=== PATIENT | male | born 1980 | race Caucasian/White ===

== ENCOUNTER 2016-12-02 17:57 | Emergency (ER) | payer BC ==
[2016-12-02] MEDS ORDERED: Sodium Chloride 0.9% 10 ML Syringe FLUSH PRN (18:28)
[2016-12-02] MEDS ORDERED: diphenhydrAMINE 50 MG/ML SDV IVPUSH ONE (18:29)
[2016-12-02] MEDS ORDERED: Prochlorperazine 10 MG/2 ML SDV IVPUSH ONE (18:29)
[2016-12-02] MEDS ORDERED: Ketorolac 30 MG/ML SDV IVPUSH ONE (18:29)
[2016-12-02] MEDS ORDERED: Sodium Chloride 0.9% 1,000 ML ONE (18:35)
--- NOTE | 2016-12-02 19:25 | EDM.PDOC ---
ED HPI GENERAL MEDICAL PROBLEM - General Chief Complaint: Neurological Problem Stated Complaint: HEADACHES Time Seen by Provider: 12/02/16 18:10 Source of Information: Reports: Patient History Limitations: Reports: No Limitations - History of Present Illness INITIAL COMMENTS - FREE TEXT/NARRATIVE: The patient presents with a headache for a few days. This started on Friday and it is still present. It is on the left side. He has no nausea, vomiting, numbness or weakness. He has dealt with these headaches for months. He has had MRIs of his head and cervical spine. He has been to neurology and they diagnosed him with chronic migraines. He is on amytroptoline and other meds and they are not helping. Onset: Gradual Duration: Day(s): (3) Location: Reports: Head Quality: Reports: Ache, Sharp Severity: Severe Improves with: Reports: None Worsens with: Reports: None Associated Symptoms: Reports: No Other Symptoms Headache Pain Score (Numeric/FACES): 5 - Related Data Allergies Allergy/AdvReac Type Severity Reaction Status Date / Time octopus Allergy Hives Verified 12/02/16 18:08 Home Meds: Home Meds Amitriptyline [Elavil] 20 mg PO BEDTIME 12/02/16 [History] Headache Medicine? 12/02/16 [History] Hydrocodone/Acetaminophen [Hydrocodon-Acetaminophen 5-325] 1 - 2 each PO Q6HR PRN #30 tablet 12/02/16 [Rx] Past Medical History Neurological History: Reports: Migraines - Past Surgical History Other HEENT Surgeries/Procedures: [place] tooth extraction Other GI Surgeries/Procedures: Bilateral inguinal hernia repair Social & Family History - Tobacco Use Smoking Status *Q: Never Smoker Years of Tobacco use: 6 Packs/Tins Daily: 1 - Recreational Drug Use Recreational Drug Use: No ED ROS GENERAL - Review of Systems Review Of Systems: See Below Constitutional: Reports: No Symptoms HEENT: Reports: No Symptoms Respiratory: Reports: No Symptoms Cardiovascular: Reports: No Symptoms Endocrine: Reports: No Symptoms GI/Abdominal: Reports: No Symptoms : Reports: No Symptoms Musculoskeletal: Reports: No Symptoms Skin: Reports: No Symptoms Neurological: Reports: Headache ED EXAM, NEURO - Physical Exam Exam: See Below Exam Limited By: No Limitations General Appearance: Alert, No Apparent Distress Ears: Normal External Exam Nose: Normal Inspection Throat/Mouth: Normal Inspection Head Exam: Atraumatic, Normocephalic Neck: Normal Inspection Respiratory/Chest: No Respiratory Distress, Lungs Clear, Normal Breath Sounds Cardiovascular: Regular Rate, Rhythm, No Edema, No Murmur GI/Abdominal: Soft, Non-Tender, No Organomegaly Neurological: Alert, No Motor/Sensory Deficits, Oriented x 3 Course - Vital Signs Last Recorded V/S: Last Vital Signs Temp 97.6 F 12/02/16 18:08 Pulse 102 H 12/02/16 18:08 Resp 15 12/02/16 18:08 BP 132/107 H 12/02/16 18:08 Pulse Ox 98 12/02/16 18:08 - Orders/Labs/Meds Orders: Active Orders 24 hr Category Date Time Status Peripheral IV Care [RC] . DIRECTED Care 12/02/16 18:28 Active Sodium Chloride 0.9% [Saline Flush] Med 12/02/16 18:28 Active 10 ml FLUSH ASDIRECTED PRN Peripheral IV Insertion Adult [OM.PC] Routine Oth 12/02/16 18:28 Ordered Medication Orders Sodium Chloride (Saline Flush) 10 ml FLUSH ASDIRECTED PRN PRN Reason: Keep Vein Open Last Admin: 12/02/16 19:01 Dose: 10 ml Meds: Medications Generic Name Dose Route Start Last Admin Trade Name Freq PRN Reason Stop Dose Admin Sodium Chloride 10 ml 12/02/16 18:28 12/02/16 19:01 Saline Flush FLUSH 10 ml ASDIRECTED PRN Administration Keep Vein Open Discontinued Medications Generic Name Dose Route Start Last Admin Trade Name Freq PRN Reason Stop Dose Admin Diphenhydramine HCl 50 mg 12/02/16 18:29 12/02/16 18:58 Benadryl IVPUSH 12/02/16 18:30 50 mg ONETIME ONE Administration Sodium Chloride Confirm 12/02/16 18:35 Normal Saline Administered 12/02/16 18:36 Dose 1,000 mls @ as directed .ROUTE .STK-MED ONE Ketorolac Tromethamine 30 mg 12/02/16 18:29 12/02/16 18:56 Toradol IVPUSH 12/02/16 18:30 30 mg ONETIME ONE Administration Prochlorperazine Edisylate 10 mg 12/02/16 18:29 12/02/16 18:54 Compazine IVPUSH 12/02/16 18:30 10 mg ONETIME ONE Administration - Re-Assessments/Exams Free Text/Narrative Re-Assessment/Exam: 12/02/16 19:25 I ordered an IV saline lock, compazine 10mg IV, toradol 30mg IV and benadryl 50mg IV. 12/02/16 19:31 His headache is better but not gone. I will discharge him on some hydrocodone. Departure - Departure Time of Disposition: 19:35 Disposition: Home, Self-Care 01 Condition: Good Clinical Impression: Migraine headache Qualifiers: Migraine type: other Status migrainosus presence: without status migrainosus Intractability: not intractable Qualified Code(s): G43.809 - Other migraine, not intractable, without status migrainosus - Discharge Information Prescriptions: Hydrocodone/Acetaminophen [Hydrocodon-Acetaminophen 5-325] 1 - 2 each PO Q6HR PRN #30 tablet PRN Reason: Pain Referrals: Christina Ramirez PA-C [Primary Care Provider] - 1 Week Forms: ED Department Discharge Additional Instructions: Take your medication as prescribed. Follow up with Christina Ramirez or your neurologist. Please return if you are worse. - My Orders Last 24 Hours: My Active Orders 12/02/16 18:28 Peripheral IV Care [RC] . DIRECTED Sodium Chloride 0.9% [Saline Flush] 10 ml FLUSH ASDIRECTED PRN Peripheral IV Insertion Adult [OM.PC] Routine - Assessment/Plan Last 24 Hours: My Active Orders 12/02/16 18:28 Peripheral IV Care [RC] . DIRECTED Sodium Chloride 0.9% [Saline Flush] 10 ml FLUSH ASDIRECTED PRN Peripheral IV Insertion Adult [OM.PC] Routine
[2016-12-02 19:59] VITALS: BP 130/84
== END 2016-12-02 19:50 | disposition home or self-care (01) ==
LOC: JD.ED 17:57
DX: G43.809 Other migraine, not intractable, without status migrainosus (principal); Z91.09 Other allergy status, other than to drugs and biological substances
CPT/HCPCS: 96374; 96375; 99284; J0780; J1200; J1885; J7050

== ENCOUNTER 2017-03-26 12:38 | Emergency (ER) | payer BC ==
[2017-03-26 13:09] VITALS: BP 142/81
[2017-03-26] MEDS ORDERED: Sodium Chloride 0.9% 10 ML Syringe FLUSH PRN (13:46)
[2017-03-26] MEDS ORDERED: Prochlorperazine 10 MG/2 ML SDV IVPUSH ONE (13:47)
[2017-03-26] MEDS ORDERED: diphenhydrAMINE 50 MG/ML SDV IVPUSH ONE (13:47)
[2017-03-26] MEDS ORDERED: Ketorolac 30 MG/ML SDV IVPUSH ONE (13:47)
[2017-03-26] MEDS ORDERED: Sodium Chloride 0.9% 1,000 ML IV SCH (14:00)
--- NOTE | 2017-03-26 14:56 | EDM.PDOC ---
ED HPI GENERAL MEDICAL PROBLEM - General Chief Complaint: Neurological Problem Stated Complaint: HEADACHES Time Seen by Provider: 03/26/17 12:39 Source of Information: Reports: Patient History Limitations: Reports: No Limitations - History of Present Illness INITIAL COMMENTS - FREE TEXT/NARRATIVE: The patient presents with a headache. He has a generalized headache and neck pain at times. He has been evaluated by a couple neurologists and is being managed by his primary care doctor. Nothing has been helping recently he is on some gabapentin and he was told that will take a month to work. He denies any numbness or weakness. He has no vision changes. He has no fever or chills. He has no nausea or vomiting. Onset: Gradual Duration: Week(s): Location: Reports: Head, Neck Quality: Reports: Sharp Severity: Moderate Improves with: Reports: None Worsens with: Reports: None Context: Reports: Activity (He does a lot of looking up with his job) Associated Symptoms: Reports: Headaches Treatments [employer] WORK[employer]: Reports: Other (see below) Other Treatments [employer] WORKER: ibuprofen at 0815/ tylenol 500 mg at noon Headache Pain Score (Numeric/FACES): 8 - Related Data Allergies Allergy/AdvReac Type Severity Reaction Status Date / Time octopus Allergy Hives Verified 03/26/17 13:04 Home Meds: Home Meds Gabapentin [Neurontin] 300 mg PO TID 03/26/17 [History] Hydrocodone/Acetaminophen [Hydrocodon-Acetaminophn 10-325] 1 each PO Q6HR PRN # 30 tablet 03/26/17 [Rx] Past Medical History Neurological History: Reports: Migraines - Past Surgical History Other HEENT Surgeries/Procedures: [place] tooth extraction Other GI Surgeries/Procedures: Bilateral inguinal hernia repair Social & Family History - Tobacco Use Smoking Status *Q: Never Smoker Years of Tobacco use: 6 Packs/Tins Daily: 1 - Recreational Drug Use Recreational Drug Use: No ED ROS GENERAL - Review of Systems Review Of Systems: See Below Constitutional: Reports: No Symptoms HEENT: Reports: No Symptoms Respiratory: Reports: No Symptoms Cardiovascular: Reports: No Symptoms Endocrine: Reports: No Symptoms GI/Abdominal: Reports: No Symptoms : Reports: No Symptoms Musculoskeletal: Reports: Neck Pain Neurological: Reports: Headache ED EXAM, NEURO - Physical Exam Exam: See Below Exam Limited By: No Limitations General Appearance: Alert, No Apparent Distress Ears: Normal External Exam Nose: Normal Inspection Head Exam: Atraumatic, Normocephalic Neck: Normal Inspection Respiratory/Chest: No Respiratory Distress, Lungs Clear, Normal Breath Sounds Cardiovascular: Regular Rate, Rhythm, No Edema, No Murmur GI/Abdominal: Soft, Non-Tender, No Organomegaly, No Mass Neurological: Alert, No Motor/Sensory Deficits, Oriented x 3 Course - Vital Signs Last Recorded V/S: Last Vital Signs Temp 98.2 F 03/26/17 13:05 Pulse 83 03/26/17 13:05 Resp 16 03/26/17 13:05 BP 142/81 H 03/26/17 13:05 Pulse Ox 95 03/26/17 13:05 - Orders/Labs/Meds Orders: Active Orders 24 hr Category Date Time Status Peripheral IV Care [RC] . DIRECTED Care 03/26/17 13:47 Active Sodium Chloride 0.9% [Normal Saline] 1,000 ml Med 03/26/17 14:00 Active IV ASDIRECTED Sodium Chloride 0.9% [Saline Flush] Med 03/26/17 13:46 Active 10 ml FLUSH ASDIRECTED PRN Peripheral IV Insertion Adult [OM.PC] Routine Oth 03/26/17 13:46 Ordered Medication Orders Sodium Chloride (Normal Saline) 1,000 mls @ 150 mls/hr IV ASDIRECTED IRENE Last Admin: 03/26/17 14:14 Dose: 150 mls/hr Sodium Chloride (Saline Flush) 10 ml FLUSH ASDIRECTED PRN PRN Reason: Keep Vein Open Last Admin: 03/26/17 14:24 Dose: 10 ml Meds: Medications Generic Name Dose Route Start Last Admin Trade Name Freq PRN Reason Stop Dose Admin Sodium Chloride 1,000 mls @ 150 mls/hr 03/26/17 14:00 03/26/17 14:14 Normal Saline IV 150 mls/hr ASDIRECTED IRENE Administration Sodium Chloride 10 ml 03/26/17 13:46 03/26/17 14:24 Saline Flush FLUSH 10 ml ASDIRECTED PRN Administration Keep Vein Open Discontinued Medications Generic Name Dose Route Start Last Admin Trade Name Freq PRN Reason Stop Dose Admin Diphenhydramine HCl 50 mg 03/26/17 13:47 03/26/17 14:14 Benadryl IVPUSH 03/26/17 13:48 50 mg ONETIME ONE Administration Ketorolac Tromethamine 30 mg 03/26/17 13:47 03/26/17 14:19 Toradol IVPUSH 03/26/17 13:48 30 mg ONETIME ONE Administration Prochlorperazine Edisylate 10 mg 03/26/17 13:47 03/26/17 14:22 Compazine IVPUSH 03/26/17 13:48 10 mg ONETIME ONE Administration - Re-Assessments/Exams Free Text/Narrative Re-Assessment/Exam: 03/26/17 14:55 I ordered an IV NS 1L bolus, compazine 10mg IV, toradol 30mg IV, and benadryl 50mg IV. He feels better. I will discharge him home. Departure - Departure Time of Disposition: 14:55 Disposition: Home, Self-Care 01 Condition: Good Clinical Impression: Migraine headache Qualifiers: Migraine type: other Status migrainosus presence: without status migrainosus Intractability: not intractable Qualified Code(s): G43.809 - Other migraine, not intractable, without status migrainosus - Discharge Information Prescriptions: Hydrocodone/Acetaminophen [Hydrocodon-Acetaminophn 10-325] 1 each PO Q6HR PRN # 30 tablet PRN Reason: Pain Referrals: Ryan Arguello MD [Primary Care Provider] - 1 Week Additional Instructions: Take the hydrocodone as needed for pain. Take your other medication as needed. Please return if you are worse. - My Orders Last 24 Hours: My Active Orders 03/26/17 13:46 Sodium Chloride 0.9% [Saline Flush] 10 ml FLUSH ASDIRECTED PRN Peripheral IV Insertion Adult [OM.PC] Routine 03/26/17 13:47 Peripheral IV Care [RC] . DIRECTED 03/26/17 14:00 Sodium Chloride 0.9% [Normal Saline] 1,000 ml IV ASDIRECTED - Assessment/Plan Last 24 Hours: My Active Orders 03/26/17 13:46 Sodium Chloride 0.9% [Saline Flush] 10 ml FLUSH ASDIRECTED PRN Peripheral IV Insertion Adult [OM.PC] Routine 03/26/17 13:47 Peripheral IV Care [RC] . DIRECTED 03/26/17 14:00 Sodium Chloride 0.9% [Normal Saline] 1,000 ml IV ASDIRECTED
== END 2017-03-26 15:21 | disposition home or self-care (01) ==
LOC: JD.ED 12:38
DX: G43.809 Other migraine, not intractable, without status migrainosus (principal); Z91.018 Allergy to other foods
CPT/HCPCS: 96361; 96374; 96375; 99283; J0780; J1200; J1885; J7040; J7050; 99284

== ENCOUNTER 2017-04-19 10:42 | Emergency (ER) | payer BC ==
[2017-04-19 10:51] VITALS: BP 137/88
--- NOTE | 2017-04-19 10:52 | EDM.PDOC ---
ED HPI GENERAL MEDICAL PROBLEM - General Chief Complaint: ENT Problem Stated Complaint: SORE THROAT Time Seen by Provider: 04/19/17 10:52 Source of Information: Reports: Patient History Limitations: Reports: No Limitations - History of Present Illness INITIAL COMMENTS - FREE TEXT/NARRATIVE: 36-year-old male presents to the ED with painful sore throat headache and paroxysmal dry cough that started suddenly yesterday last evening. Patient has a son that was diagnosed with influenza A 4 days ago. He has not had a flu shot. Patient wasn't sure there is a fever. He did have diaphoresis and chills last night. States his throat is very sore and he thought it was closing in a bit was somewhat fearful that he was going to choke last night. Of note he still has tonsils. Did take Tylenol for fever and sore throat relief. Onset: Sudden Onset Date: 04/18/17 Onset Time: 19:00 Duration: Hour(s): Location: Reports: Neck, Chest (Mostly his throat), Generalized ( oxygen small nonproductive cough generalized myalgia headache ) Quality: Reports: Ache Severity: Moderate Improves with: Reports: None Worsens with: Reports: None Context: Denies: Activity, Exercise, Lifting, Sick Contact, Trauma, Other Associated Symptoms: Reports: Cough, Diaphoresis, Fever/Chills (Last night), Headaches, Loss of Appetite ( chills but not a defined fever.), Malaise. Denies : No Other Symptoms, Confusion, Chest Pain (Nonproductive), cough w sputum, Nausea/Vomiting, Rash, Seizure, Shortness of Breath, Syncope, Weakness Treatments [employer]IPMENT [employer]CH: Reports: Acetaminophen Neck Pain Score (Numeric/FACES): 6 - Related Data Allergies Allergy/AdvReac Type Severity Reaction Status Date / Time octopus Allergy Hives Verified 03/26/17 13:04 Home Meds: Home Meds Hydrocodone/Chlorphen P-Stirex [Tussionex Pennkinetic Susp] 5 ml PO Q12H PRN # 60 ml 04/19/17 [Rx] Naltrexone 1.5 mg PO BEDTIME 04/19/17 [History] Oseltamivir [Tamiflu] 75 mg PO BID #10 cap 04/19/17 [Rx] Past Medical History Neurological History: Reports: Migraines - Past Surgical History Other HEENT Surgeries/Procedures: [place] tooth extraction Other GI Surgeries/Procedures: Bilateral inguinal hernia repair Social & Family History - Tobacco Use Smoking Status *Q: Never Smoker Years of Tobacco use: 6 Packs/Tins Daily: 1 - Recreational Drug Use Recreational Drug Use: No - Living Situation & Occupation Living situation: Reports: Occupation: Employed ED ROS ENT - Review of Systems Review Of Systems: See Below Constitutional: Reports: Chills, Malaise, Weakness, Fatigue, Diaphoresis (Last night.), Decreased Appetite. Denies: Weight Loss HEENT: Reports: Throat Pain, Throat Swelling Respiratory: Reports: Cough. Denies: Sputum Cardiovascular: Reports: No Symptoms Endocrine: Reports: No Symptoms GI/Abdominal: Reports: No Symptoms : Reports: No Symptoms Musculoskeletal: Reports: No Symptoms Skin: Reports: No Symptoms Neurological: Reports: No Symptoms Psychiatric: Reports: No Symptoms Hematologic/Lymphatic: Reports: No Symptoms ED EXAM, ENT - Physical Exam Exam: See Below Exam Limited By: No Limitations General Appearance: Alert, WD/WN, No Apparent Distress, Other (Mildly warm to palpation.) Eye Exam: Bilateral Eye: Normal Inspection, PERRL (Some pain on lateral gaze bilaterally.) Ears: Normal TMs Mouth/Throat: Normal Inspection, Normal Gums, Normal Lips, Normal Oropharynx, Other (Diffuse mild erythema but no exudate or tonsillar swelling.) Head: Atraumatic, Normocephalic Neck: Normal Inspection, Supple, Non-Tender, Full Range of Motion. No: Lymphadenopathy (L), Lymphadenopathy (R) Respiratory/Chest: No Respiratory Distress, Lungs Clear, Normal Breath Sounds, No Accessory Muscle Use Cardiovascular: Normal Peripheral Pulses, Regular Rate, Rhythm, No Edema, No Gallop, No Murmur, No Rub GI/Abdominal: Normal Bowel Sounds, Soft, Non-Tender, No Organomegaly, No Abnormal Bruit, No Mass Back: Normal Inspection, Full Range of Motion. No: CVA Tenderness (L), CVA Tenderness (R) Extremities: Normal Inspection, Normal Range of Motion, Non-Tender, No Pedal Edema, Normal Capillary Refill Neurological: Alert, Oriented, CN II-XII Intact, Normal Cognition. No: Normal Gait Psychiatric: Normal Affect, Normal Mood Skin: Warm, Dry, Intact, Normal Color, No Rash Course - Vital Signs Last Recorded V/S: Last Vital Signs Temp 36.9 C 04/19/17 10:47 Pulse 81 04/19/17 10:47 Resp 16 04/19/17 10:47 BP 137/88 04/19/17 10:47 Pulse Ox 99 04/19/17 10:47 - Orders/Labs/Meds Orders: Active Orders 24 hr Category Date Time Status CULTURE STREP A CONFIRMATION [RM] Stat Lab 04/19/17 10:55 Results Rapid Strep w/culture conf [STREP SCRN A RAPID W CULT Lab 04/19/17 10:55 Results CONF] [RM] Stat Meds: Medications Discontinued Medications Generic Name Dose Route Start Last Admin Trade Name Sotero PRN Reason Stop Dose Admin Dexamethasone 10 mg 04/19/17 10:58 04/19/17 11:08 Dexamethasone PO 04/19/17 10:59 10 mg ONETIME ONE Administration Ibuprofen 600 mg 04/19/17 10:58 04/19/17 11:09 Motrin PO 04/19/17 10:59 600 mg ONETIME ONE Administration Promethazine HCl/Codeine 10 ml 04/19/17 11:01 04/19/17 11:08 Phenergan With Codeine PO 04/19/17 11:02 10 ml ONETIME ONE Administration - Radiology Interpretation Free Text/Narrative:: 36-year-old male presents the ED with acute onset of illness last evening. He particularly is complaining of sore throat and feeling like his throat was closing in last night. Hurts badly to swallow today. He did have some diaphoresis and some night sweats last night. Today he has generalized myalgia with a headache and a nonproductive reductive paroxysmal cough. Of note his son was diagnosed with influenza A 3 days ago. Plan influenza screen and rapid strep screen done. Examination did not show any evidence of exudate in the oropharynx or tonsillitis. Suspect either early influenza A. Given Motrin 600 mg by mouth and dexamethasone 10 mg by mouth to relieve throat swelling since it is very bothersome to the patient. - Re-Assessments/Exams Free Text/Narrative Re-Assessment/Exam: 04/19/17 11:28 influenza screen came back negative. This may be false negative as many times if symptoms develop within 24 hours the test is negative. The viral load is not yet high enough to convert the test. Rapid strep screen also came back negative. Since he has an influenza infected child in his home he is at high risk of developing this illness. Will treat with Tamiflu 75 mg twice a day for 5 days. Tussionex cough syrup 5 mils at bedtime when necessary to help with paroxysmal cough. Continue Motrin 600 mg every 6 hours as needed to reduce pain and inflammation, fever and headache. Departure - Departure Time of Disposition: 11:33 Disposition: Home, Self-Care 01 Condition: Fair Clinical Impression: Viral upper respiratory tract infection with cough - Discharge Information Prescriptions: Hydrocodone/Chlorphen P-Stirex [Tussionex Pennkinetic Susp] 5 ml PO Q12H PRN # 60 ml PRN Reason: cough relief. Oseltamivir [Tamiflu] 75 mg PO BID #10 cap Referrals: Ryan Arguello MD [Primary Care Provider] - Forms: ED Department Discharge Additional Instructions: Evaluation the emergency room today in regards to development of generalized myalgia which means muscle aches headache and paroxysmal nonproductive cough and very sore throat over the last 12 hours or more. With influenza diagnosis and one of your children at home the diagnosis is most likely influenza. The influenza screen done in the ED is negative today but often it is within the first 24 hours of illness as the viral load is still quite low. Suggestion would be to treat you as if you are influenza positive. Us means use of Tamiflu 75 mg twice daily for 10 days starting this morning. Continue Motrin 600 mg every 6 hours until fever and body aches are gone which would be at least 36 hours. May use cough syrup Tussionex 5 mils every 12 hours as needed for cough relief primarily at bedtime so that you don't cough during the night. It takes a good hour to work so plan on taking it an hour before bedtime. Follow-up if any other problems develop. - My Orders Last 24 Hours: My Active Orders 04/19/17 10:55 CULTURE STREP A CONFIRMATION [] Stat Rapid Strep w/culture conf [STREP SCRN A RAPID W CULT CONF] [] Stat - Assessment/Plan Last 24 Hours: My Active Orders 04/19/17 10:55 CULTURE STREP A CONFIRMATION [] Stat Rapid Strep w/culture conf [STREP SCRN A RAPID W CULT CONF] [] Stat
[2017-04-19] MEDS ORDERED: Ibuprofen 600 MG Tab PO ONE (10:58)
[2017-04-19] MEDS ORDERED: Dexamethasone 4 MG Tab PO ONE (10:58)
[2017-04-19] MEDS ORDERED: Codeine/Promethazine 10-6.25 MG/5 ML Syrup 5 ML UD Cup PO ONE (11:01)
== END 2017-04-19 11:48 | disposition home or self-care (01) ==
LOC: JD.ED 10:42
DX: J06.9 Acute upper respiratory infection, unspecified (principal); Z91.013 Allergy to seafood
CPT/HCPCS: 87081; 87430; 87804; 99283; A9270; J8540

== ENCOUNTER 2017-04-30 14:46 | Emergency (ER) | payer BC ==
[2017-04-30 14:53] VITALS: BP 135/89
[2017-04-30] MEDS ORDERED: Sodium Chloride 0.9% 10 ML Syringe FLUSH PRN (15:02)
[2017-04-30] MEDS ORDERED: Prochlorperazine 10 MG/2 ML SDV IVPUSH ONE (15:03)
[2017-04-30] MEDS ORDERED: diphenhydrAMINE 50 MG/ML SDV IVPUSH ONE (15:03)
[2017-04-30] MEDS ORDERED: Ketorolac 30 MG/ML SDV IVPUSH ONE (15:03)
[2017-04-30] MEDS ORDERED: Sodium Chloride 0.9% 1,000 ML IV SCH (15:15)
--- NOTE | 2017-04-30 16:07 | EDM.PDOC ---
ED HPI GENERAL MEDICAL PROBLEM - General Chief Complaint: Headache Stated Complaint: HEADACHE Time Seen by Provider: 04/30/17 14:50 Source of Information: Reports: Patient History Limitations: Reports: No Limitations - History of Present Illness INITIAL COMMENTS - FREE TEXT/NARRATIVE: The patient presents with a left sided headache. This started about 4 days ago. He says it starts in his neck and travels up his head. He has no numbness or weakness. He has no blurred or double vision. He has a history of migraines and occipital neuralgia. He has had CTs, MRI of brain, and cervical spine and an MRA of his brain. There has been nothing found to cause his headaches. He has been to pain management and chiropractors. It will help for a short while but nothing has made them go away. He says he is diaphoretic and not sleeping well. Onset: Gradual Duration: Day(s): (4) Location: Reports: Head Quality: Reports: Sharp Severity: Severe Improves with: Reports: None Worsens with: Reports: None Associated Symptoms: Reports: Headaches. Denies: Nausea/Vomiting, Shortness of Breath Headache Pain Score (Numeric/FACES): 9 - Related Data Allergies Allergy/AdvReac Type Severity Reaction Status Date / Time octopus Allergy Hives Verified 03/26/17 13:04 Home Meds: Home Meds Hydrocodone/Chlorphen P-Stirex [Tussionex Pennkinetic Susp] 5 ml PO Q12H PRN # 60 ml 04/19/17 [Rx] Naltrexone 1.5 mg PO BEDTIME 04/19/17 [History] Oseltamivir [Tamiflu] 75 mg PO BID #10 cap 04/19/17 [Rx] Hydrocodone/Acetaminophen [Hydrocodon-Acetaminophn 10-325] 1 each PO Q6HR PRN # 30 tablet 04/30/17 [Rx] Past Medical History Neurological History: Reports: Migraines - Past Surgical History Other HEENT Surgeries/Procedures: [place] tooth extraction Other GI Surgeries/Procedures: Bilateral inguinal hernia repair Social & Family History - Family History Family Medical History: Noncontributory - Tobacco Use Smoking Status *Q: Never Smoker Years of Tobacco use: 6 Packs/Tins Daily: 1 - Caffeine Use Caffeine Use: Reports: None - Recreational Drug Use Recreational Drug Use: No - Living Situation & Occupation Living situation: Reports: Occupation: Employed ED ROS GENERAL - Review of Systems Review Of Systems: See Below Constitutional: Reports: No Symptoms HEENT: Reports: No Symptoms Respiratory: Reports: No Symptoms Cardiovascular: Reports: No Symptoms Endocrine: Reports: No Symptoms GI/Abdominal: Reports: No Symptoms : Reports: No Symptoms Musculoskeletal: Reports: Neck Pain Neurological: Reports: Headache - Physical Exam Exam: See Below Exam Limited By: No Limitations General Appearance: Alert, No Apparent Distress Ears: Normal External Exam Nose: Normal Inspection Head Exam: Atraumatic, Normocephalic Neck: Tender Lateral (left) Respiratory/Chest: No Respiratory Distress, Lungs Clear, Normal Breath Sounds Cardiovascular: Regular Rate, Rhythm, No Edema, No Murmur GI/Abdominal: Soft, Non-Tender, No Organomegaly, No Mass Neuro Exam (Abbreviated): Alert, Oriented, No Motor/Sensory Deficits Course - Vital Signs Last Recorded V/S: Last Vital Signs Temp 98.3 F 04/30/17 14:51 Pulse 90 04/30/17 14:51 Resp 20 04/30/17 14:51 BP 135/89 04/30/17 14:51 Pulse Ox 99 04/30/17 14:51 - Orders/Labs/Meds Orders: Active Orders 24 hr Category Date Time Status Peripheral IV Care [RC] . DIRECTED Care 04/30/17 15:03 Active Sodium Chloride 0.9% [Normal Saline] 1,000 ml Med 04/30/17 15:15 Active IV ASDIRECTED Sodium Chloride 0.9% [Saline Flush] Med 04/30/17 15:02 Active 10 ml FLUSH ASDIRECTED PRN ED Antiemetic Medication Reflex [OM.PC] Stat Oth 04/30/17 15:02 Ordered Peripheral IV Insertion Adult [OM.PC] Stat Oth 04/30/17 15:02 Ordered Medication Orders Sodium Chloride (Normal Saline) 1,000 mls @ 125 mls/hr IV ASDIRECTED IRENE Last Admin: 04/30/17 15:17 Dose: 125 mls/hr Sodium Chloride (Saline Flush) 10 ml FLUSH ASDIRECTED PRN PRN Reason: Keep Vein Open Last Admin: 04/30/17 15:17 Dose: 10 ml Labs: Laboratory Tests 04/30/17 04/30/17 Range/Units 15:20 15:20 WBC 7.88 (4.23-9.07) K/mm3 RBC 5.54 (4.63-6.08) M/mm3 Hgb 15.9 (13.7-17.5) gm/L Hct 46.7 (40.1-51.0) % MCV 84.3 (79.0-92.2) fl MCH 28.7 (25.7-32.2) pg MCHC 34.0 (32.2-35.5) g/dl RDW Std Deviation 39.8 (35.1-43.9) fL Plt Count 292 (163-337) K/mm3 MPV 10.5 (9.4-12.3) fl Neut % (Auto) 72.9 H (34.0-67.9) % Lymph % (Auto) 20.1 L (21.8-53.1) % [place] % (Auto) 5.5 (5.3-12.2) % Eos % (Auto) 0.9 (0.8-7.0) Baso % (Auto) 0.5 (0.1-1.2) % Neut # (Auto) 5.75 H (1.78-5.38) K/mm3 Lymph # (Auto) 1.58 (1.32-3.57) K/mm3 [place] # (Auto) 0.43 (0.30-0.82) K/mm3 Eos # (Auto) 0.07 (0.04-0.54) K/mm3 Baso # (Auto) 0.04 (0.01-0.08) K/mm3 Sodium 145 (136-145) mEq/L Potassium 3.8 (3.5-5.1) mEq/L Chloride 106 (98-107) mEq/L Carbon Dioxide 27 (21-32) mEq/L Anion Gap 15.8 H (5-15) BUN 9 (7-18) mg/dL Creatinine 1.1 (0.7-1.3) mg/dL Est Cr Clr Drug Dosing 94.62 mL/min Estimated GFR (MDRD) > 60 (>60) mL/min BUN/Creatinine Ratio 8.2 L (14-18) Glucose 82 (74-106) mg/dL Calcium 9.5 (8.5-10.1) mg/dL Total Bilirubin 0.5 (0.2-1.0) mg/dL AST 17 (15-37) U/L ALT 26 (16-63) U/L Alkaline Phosphatase 88 (46-116) U/L Total Protein 8.1 (6.4-8.2) g/dl Albumin 4.5 (3.4-5.0) g/dl Globulin 3.6 gm/dL Albumin/Globulin Ratio 1.3 (1-2) Meds: Medications Generic Name Dose Route Start Last Admin Trade Name Freq PRN Reason Stop Dose Admin Sodium Chloride 1,000 mls @ 125 mls/hr 04/30/17 15:15 04/30/17 15:17 Normal Saline IV 125 mls/hr ASDIRECTED IRENE Administration Sodium Chloride 10 ml 04/30/17 15:02 04/30/17 15:17 Saline Flush FLUSH 10 ml ASDIRECTED PRN Administration Keep Vein Open Discontinued Medications Generic Name Dose Route Start Last Admin Trade Name Freq PRN Reason Stop Dose Admin Diphenhydramine HCl 50 mg 04/30/17 15:03 04/30/17 15:17 Benadryl IVPUSH 04/30/17 15:04 50 mg ONETIME ONE Administration Ketorolac Tromethamine 30 mg 04/30/17 15:03 04/30/17 15:17 Toradol IVPUSH 04/30/17 15:04 30 mg ONETIME ONE Administration Prochlorperazine Edisylate 10 mg 04/30/17 15:03 04/30/17 15:17 Compazine IVPUSH 04/30/17 15:04 10 mg ONETIME ONE Administration - Re-Assessments/Exams Free Text/Narrative Re-Assessment/Exam: 04/30/17 16:06 I ordered an IV NS, labs, compazine 10mg IV, toradol 30mg IV, and benadryl 50mg IV. His CBC and CMP look good. 04/30/17 16:19 He feels much better. I will discharge him home. Departure - Departure Time of Disposition: 16:20 Disposition: Home, Self-Care 01 Condition: Good Clinical Impression: Migraine - Discharge Information Prescriptions: Hydrocodone/Acetaminophen [Hydrocodon-Acetaminophn 10-325] 1 each PO Q6HR PRN # 30 tablet PRN Reason: Pain Referrals: Ryan Arguello MD [Primary Care Provider] - 1 Week Forms: ED Department Discharge Additional Instructions: Continue seeing Dr Garnica and continue with the medications. Please return if you are worse. - My Orders Last 24 Hours: My Active Orders 04/30/17 15:02 Sodium Chloride 0.9% [Saline Flush] 10 ml FLUSH ASDIRECTED PRN ED Antiemetic Medication Reflex [OM.PC] Stat Peripheral IV Insertion Adult [OM.PC] Stat 04/30/17 15:03 Peripheral IV Care [RC] . DIRECTED 04/30/17 15:15 Sodium Chloride 0.9% [Normal Saline] 1,000 ml IV ASDIRECTED - Assessment/Plan Last 24 Hours: My Active Orders 04/30/17 15:02 Sodium Chloride 0.9% [Saline Flush] 10 ml FLUSH ASDIRECTED PRN ED Antiemetic Medication Reflex [OM.PC] Stat Peripheral IV Insertion Adult [OM.PC] Stat 04/30/17 15:03 Peripheral IV Care [RC] . DIRECTED 04/30/17 15:15 Sodium Chloride 0.9% [Normal Saline] 1,000 ml IV ASDIRECTED
== END 2017-04-30 16:30 | disposition home or self-care (01) ==
LOC: JD.ED 14:46
DX: G43.909 Migraine, unspecified, not intractable, without status migrainosus (principal); Z79.899 Other long term (current) drug therapy; Z91.013 Allergy to seafood
CPT/HCPCS: 36415; 80053; 85025; 96361; 96374; 96375; 99284; J0780; J1200; J1885; J7040; J7050

== ENCOUNTER 2019-06-14 14:53 | Emergency (ER) | payer BC ==
[2019-06-14 15:08] VITALS: BP 140/70; PULSE 71
--- NOTE | 2019-06-14 15:36 | EDM.PDOC ---
ED HPI GENERAL MEDICAL PROBLEM - General Chief Complaint: Headache Stated Complaint: HEADACHE Time Seen by Provider: 06/14/19 15:03 Source of Information: Reports: Patient History Limitations: Reports: No Limitations - History of Present Illness INITIAL COMMENTS - FREE TEXT/NARRATIVE: The patient presents with a headache. This started earlier today. He has a history of headaches and he has been to a few neurologist and pain management. A true diagnosis was not found. In the past hydrocodone has worked but no percocet works better. He has no numbness or weakness. He has no fever, chills , cough, congestion, runny nose, chest pain or double vision. He does have some blurred vision in the right eye. Onset: Gradual Duration: Hour(s): Location: Reports: Head Quality: Reports: Sharp Severity: Moderate Improves with: Reports: None Worsens with: Reports: None Associated Symptoms: Reports: Headaches. Denies: Confusion, Chest Pain, Cough, Fever/Chills, Nausea/Vomiting, Shortness of Breath Head Pain Score (Numeric/FACES): 7 - Related Data Allergies Allergy/AdvReac Type Severity Reaction Status Date / Time octopus Allergy Hives Verified 06/14/19 15:03 Home Meds: Home Meds oxyCODONE HCl/Acetaminophen [Percocet 5-325 mg Tablet] 1 - 2 each PO Q6HR PRN # 20 tablet 06/14/19 [Rx] Past Medical History Neurological History: Reports: Migraines - Past Surgical History Other HEENT Surgeries/Procedures: [place] tooth extraction Other GI Surgeries/Procedures: Bilateral inguinal hernia repair Social & Family History - Family History Family Medical History: Noncontributory - Tobacco Use Smoking Status *Q: Current Every Day Smoker Years of Tobacco use: 10 Packs/Tins Daily: 1 - Caffeine Use Caffeine Use: Reports: Coffee, Soda - Recreational Drug Use Recreational Drug Use: No - Living Situation & Occupation Living situation: Reports: Occupation: Employed ED ROS GENERAL - Review of Systems Review Of Systems: See Below Constitutional: Reports: No Symptoms HEENT: Reports: No Symptoms Respiratory: Reports: No Symptoms Cardiovascular: Reports: No Symptoms Endocrine: Reports: No Symptoms GI/Abdominal: Reports: No Symptoms : Reports: No Symptoms Neurological: Reports: Headache - Physical Exam Exam: See Below Exam Limited By: No Limitations General Appearance: Alert, No Apparent Distress Ears: Normal External Exam Nose: Normal Inspection Head Exam: Atraumatic, Normocephalic Neck: Normal Inspection, Supple, Non-Tender Respiratory/Chest: No Respiratory Distress, Lungs Clear, Normal Breath Sounds Cardiovascular: Regular Rate, Rhythm, No Edema, No Murmur GI/Abdominal: Soft, Non-Tender, No Organomegaly, No Mass Neuro Exam (Abbreviated): Alert, Oriented, No Motor/Sensory Deficits Course - Vital Signs Last Recorded V/S: Last Vital Signs Temp 98.4 F 06/14/19 15:03 Pulse 71 06/14/19 15:03 Resp 13 06/14/19 15:03 BP 140/70 06/14/19 15:03 Pulse Ox 100 06/14/19 15:03 Departure - Departure Time of Disposition: 15:35 Disposition: Home, Self-Care 01 Condition: Good Clinical Impression: Migraine headache Qualifiers: Migraine type: other Status migrainosus presence: without status migrainosus Intractability: not intractable Qualified Code(s): G43.809 - Other migraine, not intractable, without status migrainosus - Discharge Information *PRESCRIPTION DRUG MONITORING PROGRAM REVIEWED*: No *COPY OF PRESCRIPTION DRUG MONITORING REPORT IN PATIENT MARY JANE: No Prescriptions: oxyCODONE HCl/Acetaminophen [Percocet 5-325 mg Tablet] 1 - 2 each PO Q6HR PRN # 20 tablet PRN Reason: Pain Referrals: PCP,None [Primary Care Provider] - Additional Instructions: Take the percocet as needed for pain. Please return if you are worse. Sepsis Event Note - Evaluation Sepsis Screening Result: No Definite Risk - Focused Exam Vital Signs: Vital Signs Temp Pulse Resp BP Pulse Ox 06/14/19 15:03 98.4 F 71 13 140/70 100 Date Exam was Performed: 06/14/19 Time Exam was Performed: 15:31
== END 2019-06-14 15:48 | disposition home or self-care (01) ==
LOC: JD.ED 14:53
DX: G43.809 Other migraine, not intractable, without status migrainosus (principal)
CPT/HCPCS: 99283

== ENCOUNTER 2019-11-14 06:43 | Emergency (ER) | payer BC ==
[2019-11-14 06:50] VITALS: BP 144/91; PULSE 99
[2019-11-14] MEDS ORDERED: LORazepam 2 MG/ML SDV IV ONE (07:18)
--- NOTE | 2019-11-14 07:23 | EDM.PDOC ---
ED HPI GENERAL MEDICAL PROBLEM - General Chief Complaint: General Stated Complaint: SOB Time Seen by Provider: 11/14/19 07:01 Source of Information: Reports: Patient History Limitations: Reports: No Limitations - History of Present Illness INITIAL COMMENTS - FREE TEXT/NARRATIVE: 39-year-old male presents to the ED after experiencing a panic attack. Patient states he awoke around 0545 hrs. this morning and had marked nasal congestion and difficulty swallowing. He felt like his throat was closing in which provoked an increased heart rate and a strong sense of doom. He could feel his heart racing in his chest felt very short of breath and really did not cough up any mucus. He states this is been happening quite frequently over the last month but this was the worst attack that he is experienced. He has not been on medication for anxiety disorder. Says he slept okay. Present he is feeling somewhat better. O2 sats are 100% on room air. Heart rate is 73 and sinus. He is afebrile. He states he not been sick in any other fashion. Onset: Today, Sudden Onset Date: 11/14/19 Onset Time: 05:45 Duration: Minutes: Location: Reports: Neck (Sure in the neck and throat with the sense of suffocation), Chest (Racing heart shortness of breath), Generalized Quality: Reports: Other Severity: Severe (Racing heart with no chest pain) Improves with: Reports: Other (Improved with time.) Worsens with: Reports: None Context: Denies: Activity, Exercise, Lifting, Sick Contact, Trauma, Other Associated Symptoms: Reports: Cough, Malaise, Shortness of Breath, Weakness. 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: Reports: Other (see below) - Related Data Allergies Allergy/AdvReac Type Severity Reaction Status Date / Time octopus Allergy Hives Verified 11/14/19 06:47 Home Meds: Home Meds Escitalopram [Lexapro] 20 mg PO DAILY #30 tab 11/14/19 [Rx] Past Medical History Neurological History: Reports: Migraines Psychiatric History: Reports: Anxiety - Past Surgical History Other HEENT Surgeries/Procedures: [place] tooth extraction Other GI Surgeries/Procedures: Bilateral inguinal hernia repair Social & Family History - Family History Family Medical History: Noncontributory - Tobacco Use Smoking Status *Q: Unknown Ever Smoked - Caffeine Use Caffeine Use: Reports: Coffee, Soda - Living Situation & Occupation Living situation: Reports: Occupation: Employed ED ROS GENERAL - Review of Systems Review Of Systems: See Below Constitutional: Reports: No Symptoms. Denies: Fever, Chills, Malaise, Weakness, Fatigue, Decreased Appetite, Weight Loss HEENT: Reports: Rhinitis (Chronic allergic rhinitis with postnasal drip.), Sinus Problem, Throat Swelling (Like his throat was closing in this morning.). Denies: Ear Pain, Throat Pain Respiratory: Reports: Shortness of Breath, Pleuritic Chest Pain, Cough. Denies: Wheezing, Sputum, Hemoptysis (Sputum production) Cardiovascular: Reports: Lightheadedness. Denies: Chest Pain, Blood Pressure Problem, Claudication, Dyspnea on Exertion, Edema ([place] like he might faint this morning for period of time), Orthopnea, Palpitations Endocrine: Reports: No Symptoms GI/Abdominal: Reports: No Symptoms : Reports: No Symptoms Musculoskeletal: Reports: No Symptoms Skin: Reports: No Symptoms Neurological: Reports: Dizziness, Numbness, Tingling (Hands and feet.), Difficulty Walking, Weakness. Denies: Paresthesia, Pre-Existing Deficit (During the attack.), Seizure, Syncope Psychiatric: Reports: Anxiety Hematologic/Lymphatic: Reports: No Symptoms Immunologic: Reports: No Symptoms ED EXAM, GENERAL - Physical Exam Exam: See Below Exam Limited By: No Limitations General Appearance: Alert, WD/WN, Mild Distress, Other (Mild distress at the time I seen him in the ED. Temperature is 36.4 pulse is 99 sinus respiratory is 20 BP 144/91 pulse oximetry 100% on room air) Eye Exam: Bilateral Eye: Normal Inspection, PERRL Ears: Normal TMs Nose: Other (Nose is markedly congested with marked swelling of the superior and inferior turbinates bilaterally. They are kissing in the midline. He has a mild small nasal polyp in the left side.) Throat/Mouth: Normal Inspection, Normal Lips, Normal Teeth, Normal Oropharynx, Normal Voice, No Airway Compromise, Other (No postnasal drip appreciated.) Head: Atraumatic. No: Facial Swelling, Facial Tenderness, Sinus Tenderness Neck: Normal Inspection, Supple, Non-Tender, Full Range of Motion. No: Carotid Bruit, Lymphadenopathy (L), Lymphadenopathy (R), Thyromegaly Respiratory/Chest: No Respiratory Distress, Lungs Clear, Normal Breath Sounds, No Accessory Muscle Use, Chest Non-Tender. No: Wheezing, Stridor Cardiovascular: Normal Peripheral Pulses, Regular Rate, Rhythm, No Edema, No Gallop, No Murmur, No Rub Peripheral Pulses: 3+: Carotid (L), Carotid (R), Posterior Tibial (L), Posterior Tibial (R), Dorsalis Pedis (L), Dorsalis Pedis (R) GI/Abdominal: Normal Bowel Sounds, Soft, Non-Tender, No Organomegaly, No Abnormal Bruit, No Mass, Pelvis Stable Back Exam: Normal Inspection, Full Range of Motion. No: CVA Tenderness (L), CVA Tenderness (R) Extremities: Normal Inspection, Normal Range of Motion, Non-Tender Neurological: Alert, Oriented, CN II-XII Intact, Normal Cognition Psychiatric: Normal Affect, Normal Mood (Mildly anxious at this time.), Anxious Skin Exam: Warm, Dry, Intact, Normal Color, No Rash EKG INTERPRETATION EKG Date: 11/14/19 Time: 19:51 Rhythm: NSR Rate (Beats/Min): 61 [place]: Normal P-Wave: Present QRS: Other ST-T: Normal (Mildly decreased voltage limb leads.) QT: Normal EKG Interpretation Comments: Normal ECG Course - Vital Signs Last Recorded V/S: Last Vital Signs Temp 36.4 C 11/14/19 06:47 Pulse 99 11/14/19 06:47 Resp 20 11/14/19 06:47 BP 144/91 H 11/14/19 06:47 Pulse Ox 100 11/14/19 06:47 - Orders/Labs/Meds Orders: Active Orders 24 hr Category Date Time Status EKG Documentation Completion [RC] STAT Care 11/14/19 07:19 Active Chest 1V Frontal [CR] Stat Exams 11/14/19 07:19 Taken Dextrose 5%-0.9% NaCl [Dextrose 5%-Normal Saline] 1,000 Med 11/14/19 07:30 Active ml IV ASDIRECTED Medication Orders Dextrose/Sodium Chloride (Dextrose 5%-Normal Saline) 1,000 mls @ 500 mls/hr IV ASDIRECTED IRENE Last Admin: 11/14/19 07:34 Dose: 500 mls/hr Documented by: TALIB Labs: Laboratory Tests 11/14/19 11/14/19 Range/Units 07:38 07:38 WBC 4.24 (4.23-9.07) K/mm3 RBC 4.76 (4.63-6.08) M/mm3 Hgb 13.6 L D (13.7-17.5) gm/dl Hct 40.7 (40.1-51.0) % MCV 85.5 (79.0-92.2) fl MCH 28.6 (25.7-32.2) pg MCHC 33.4 (32.2-35.5) g/dl RDW Std Deviation 39.8 (35.1-43.9) fL Plt Count 226 (163-337) K/mm3 MPV 10.0 (9.4-12.3) fl Neut % (Auto) 56.9 (34.0-67.9) % Lymph % (Auto) 34.4 (21.8-53.1) % [place] % (Auto) 8.0 (5.3-12.2) % Eos % (Auto) 0 L (0.8-7.0) Baso % (Auto) 0.7 (0.1-1.2) % Neut # (Auto) 2.41 (1.78-5.38) K/mm3 Lymph # (Auto) 1.46 (1.32-3.57) K/mm3 [place] # (Auto) 0.34 (0.30-0.82) K/mm3 Eos # (Auto) 0.00 L (0.04-0.54) K/mm3 Baso # (Auto) 0.03 (0.01-0.08) K/mm3 Sodium 145 (136-145) mEq/L Potassium 3.5 (3.5-5.1) mEq/L Chloride 108 H (98-107) mEq/L Carbon Dioxide 30 (21-32) mEq/L Anion Gap 10.5 (5-15) BUN 9 (7-18) mg/dL Creatinine 0.9 (0.7-1.3) mg/dL Est Cr Clr Drug Dosing 112.38 mL/min Estimated GFR (MDRD) > 60 (>60) mL/min BUN/Creatinine Ratio 10.0 L (14-18) Glucose 102 (74-106) mg/dL Calcium 8.3 L (8.5-10.1) mg/dL Magnesium 1.8 (1.8-2.4) mg/dl Total Bilirubin 0.5 (0.2-1.0) mg/dL AST 24 (15-37) U/L ALT 36 (16-63) U/L Alkaline Phosphatase 71 (46-116) U/L Total Protein 6.8 (6.4-8.2) g/dl Albumin 3.6 (3.4-5.0) g/dl Globulin 3.2 gm/dL Albumin/Globulin Ratio 1.1 (1-2) TSH 3rd Generation 1.689 (0.358-3.74) uIU/mL Meds: Medications Generic Name Dose Route Start Last Admin Trade Name Freq PRN Reason Stop Dose Admin Dextrose/Sodium Chloride 1,000 mls @ 500 mls/hr 11/14/19 07:30 11/14/19 07:34 Dextrose 5%-Normal Saline IV 500 mls/hr ASDIRECTED IRENE Administration Discontinued Medications Generic Name Dose Route Start Last Admin Trade Name Freq PRN Reason Stop Dose Admin Lorazepam 0.5 mg 11/14/19 07:18 11/14/19 07:34 Ativan IV 11/14/19 07:19 0.5 mg ONETIME ONE Administration - Radiology Interpretation Free Text/Narrative:: 39-year-old male presents the ED with an acute panic attack. It was precipitated shortly after awakening this morning at 5:45. He had marked nasal congestion and a feeling of a lot of mucus in his upper airway which was choking him. He said heart started racing shortly thereafter and then he had a strong sense of doom with throat closure like he was suffocating. He states this is been happening quite frequently over the last month but this was the worst event that he is experienced. He feels fine now. Vital signs were all stable and the examination is completely normal other than significant nasal congestion from allergic rhinitis which would cause a postnasal drip. Plan ECG chest x-ray routine labs including a TSH. Given Ativan 0.5 mg IV. - Re-Assessments/Exams Free Text/Narrative Re-Assessment/Exam: 11/14/19 07:58 portable chest x-ray is within normal limits showing clear lung jeffers normal cardiac silhouette. Free Text/Narrative Re-Assessment/Exam: 11/14/19 08:28 White count is 4.24 normal. Differential auto differential shows 57% neutrophils. Hemoglobin is 13.6 with hematocrit of 40.7. Platelet count is 226,000. Sodium 145 with a potassium low normal at 3.5. Chloride 108 with a bicarb of 30. Anion gap is 10.5. BUN is 9 with a creatinine of 0.9. GFR is greater than 60. Glucose 102 with a calcium of 8.3. Magnesium is 1.8. Liver function is normal. Total protein is 6.8 with an albumin fraction of 3.6. TSH is 1.689 which is normal. 11/14/19 08:35 have discussed the findings with the patient that I can find no metabolic reason for his generalized anxiety attacks and panic disorder. Decision made to place him on escitalopram or Lexapro starting with 10 mg once daily for the first 6 days and then increasing to 20 mg once daily. Ativan 1 mg strength to be used either half a tablet or full tablet on a every 6 to 8-hour as needed basis until the escitalopram becomes effective. Advised that will take between 12 and 21 days for the citalopram to become effective. If he feels much better after having 0.5 mg of Ativan given in the ED. He states much better than he has felt in a long time. Departure - Departure Time of Disposition: 08:36 Disposition: Home, Self-Care 01 Condition: Fair Clinical Impression: Generalized anxiety disorder with panic attacks - Discharge Information *PRESCRIPTION DRUG MONITORING PROGRAM REVIEWED*: Not Applicable *COPY OF PRESCRIPTION DRUG MONITORING REPORT IN PATIENT MARY JANE: Not Applicable Prescriptions: Escitalopram [Lexapro] 20 mg PO DAILY #30 tab Referrals: PCP,None [Primary Care Provider] - Forms: ED Department Discharge Additional Instructions: Evaluation in the emergency room today in regards to development of severe severe difficulty breathing associated with racing heart and a sense of throat closure and a strong sense of doom which we call panic attack. Can come on at any time and for no good reason. As you indicated you have been struggling with this disorder off and on for the last month or more. Today was perhaps the worst attack that you have experienced. Treated with 0.5 mg of Ativan intravenously which did alleviate a good deal of your anxiety and made you feel like you could get a full deep breath. Lab test revealed no abnormalities including normal thyroid gland function. Therefore this is due to a neurochemical imbalance within the brain often precipitated by disrupted sleep pattern for prolonged period of time. Just treatment with escitalopram 20 mg tablet--just breaking it in half and using 10 mg once daily for the first 6 days of use and then using a full tablet first thing in the morning. Medication will bring anxiety disorder under control over a period of 12 to 21 days. In the meantime you may need Ativan tablet similar to what you experienced in the ED today. Suggest trying a half a tablet and may be repeated every 8 hours as needed for an anxiety attack. Takes about 30 to 40 minutes to work after you have taken it orally. Faster and empty stomach and slower if of stomach is full. After 40 minutes you are not feeling improved you can take a second half a tablet. This follow-up with your personal care physician in 2 to 3 weeks time to check on how you are doing and to refill medications as needed. Sepsis Event Note (ED) - Evaluation Sepsis Screening Result: No Definite Risk - Focused Exam Vital Signs: Vital Signs Temp Pulse Resp BP Pulse Ox 11/14/19 06:47 36.4 C 99 20 144/91 H 100 - My Orders Last 24 Hours: My Active Orders 11/14/19 07:19 EKG Documentation Completion [RC] STAT Chest 1V Frontal [CR] Stat 11/14/19 07:30 Dextrose 5%-0.9% NaCl [Dextrose 5%-Normal Saline] 1,000 ml IV ASDIRECTED - Assessment/Plan Last 24 Hours: My Active Orders 11/14/19 07:19 EKG Documentation Completion [RC] STAT Chest 1V Frontal [CR] Stat 11/14/19 07:30 Dextrose 5%-0.9% NaCl [Dextrose 5%-Normal Saline] 1,000 ml IV ASDIRECTED
[2019-11-14] MEDS ORDERED: Dextrose 5%-0.9% NaCl 1,000 ML IV SCH (07:30)
--- NOTE | 2019-11-15 05:25 | CR ---
Chest: Portable view of the chest was obtained. Comparison: Prior chest x-ray is not available. Heart size and mediastinum are normal. Lungs are clear with no acute parenchymal change. Bony structures are grossly intact. Impression: 1. Nothing acute is seen on portable chest x-ray. Diagnostic code #1 This report was dictated in MDT
== END 2019-11-14 08:50 | disposition home or self-care (01) ==
LOC: JD.ED 06:43
DX: F41.1 Generalized anxiety disorder (principal); F41.0 Panic disorder [episodic paroxysmal anxiety]; R42 Dizziness and giddiness; Z91.09 Other allergy status, other than to drugs and biological substances; Z79.899 Other long term (current) drug therapy
CPT/HCPCS: 36415; 71045; 80053; 83735; 84443; 85025; 93005; 96361; 96374; 99284; J2060; J7042; 93010